=== PATIENT | male | born 1960 | race Caucasian/White ===

== ENCOUNTER 2022-05-16 18:30 | Emergency (ER) | payer BC ==
--- NOTE | 2022-05-16 19:11 | XR ---
EXAMINATION TYPE: XR chest 2V DATE OF EXAM: 05/16/2022 6:55 PM COMPARISON: Chest radiographs from TECHNIQUE: XR chest 2V Frontal and lateral views of the chest. CLINICAL INDICATION:Male, 62 years old with history of sob; FINDINGS: Lungs/Pleura: There is no evidence of pleural effusion, focal consolidation, or pneumothorax. Pulmonary vascularity: Unremarkable. Heart/mediastinum: Cardiomediastinal silhouette is unremarkable. Musculoskeletal: No acute osseous pathology. IMPRESSION: No acute cardiopulmonary disease/process.
[2022-05-16] MEDS ORDERED: dexAMETHasone 2 MG TAB PO STA (20:05)
--- NOTE | 2022-05-16 20:09 | ED ---
General Adult HPI - General Chief complaint: Upper Respiratory Infection Stated complaint: covid+, SOB Time Seen by Provider: 05/16/22 19:55 Source: patient, RN notes reviewed, old records reviewed Mode of arrival: ambulatory Limitations: no limitations - History of Present Illness Initial comments: Patient is a 62-year-old male with past medical history remarkable for acid reflux who presents emergency Department seeking Paxlovid prescription. Patient tested positive for Covid 2 days ago. Has been having more shortness of breath over the last few days with nasal congestion. Feels ill. Denies nausea or vomiting. Denies diarrhea. Endorses decreased appetite and joint pain. Denies fevers. Patient's is also sick with COVID-19. Patient was vaccinated with 2 boosters. Presents for further evaluation at this time. No history of respiratory disease including asthma or COPD. No cardiac disease. No other medications. - Related Data Allergies Allergy/AdvReac Type Severity Reaction Status Date / Time No Known Allergies Allergy Verified 05/16/22 18:48 Review of Systems ROS Statement: Those systems with pertinent positive or pertinent negative responses have been documented in the HPI. Review of Systems: CONST: Denies fever EYES: Denies blurry vision ENT: Endorses nasal congestion C/V: Denies Chest pain RESP: Denies shortness of breath GI: Denies abdominal pain : Denies dysuria SKIN: Denies rash. MSK: Denies joint pain. NEURO: Denies headache ROS Other: All systems not noted in ROS Statement are negative. Past Medical History Past Medical History: No Reported History History of Any Multi-Drug Resistant Organisms: None Reported Past Surgical History: No Surgical Hx Reported Past Psychological History: No Psychological Hx Reported Smoking Status: Never smoker Past Alcohol Use History: None Reported Past Drug Use History: None Reported General Exam - General Exam Comments Initial Comments: General: Appears in no acute distress. HEAD: Normal with no signs of head trauma. EYES: EOMI ENT: Hearing grossly intact, normal oropharynx. RESPIRATORY: Clear breath sounds bilaterally. No wheezes, rales, or rhonchi. No hypoxia, increased work of breathing. C/V: Regular rate and rhythm. S1 and S2 auscultated. ABD: Nondistended EXT: No obvious deformity SKIN: No rashes or lesions observed on exposed skin. NEURO: Alert and oriented 4. Limitations: no limitations Course Vital Signs 05/16/22 05/16/22 18:45 20:16 Temperature 98.3 F 98.9 F Pulse Rate 93 98 Respiratory 20 16 Rate Blood Pressure 156/88 147/89 O2 Sat by Pulse 95 94 L Oximetry Medical Decision Making - Medical Decision Making Based on the patient's presentation and physical exam, I do believe he has acute COVID-19 infection. He has multiple positive tests at home and presents seeking Paxlovid therapy. I evaluated the patient when he was placed in a room. Chest x-ray had already been obtained and was interpreted by myself as revealing no signs of acute cardiopulmonary process, infiltrate. Vital signs within acceptable limits. No respiratory distress. Patient is on no medications that interact with Paxlovid and therefore I do believe it is safe to prescribe in this. We did discuss possible rebound Covid which he expressed understanding of. We discussed quarantine for 5 days as well as quarentine until 24 hours fever free. Patient expressed understanding and was in agreement this plan. He has a pulse ox at home. We discharged home at this time with his prescription. I will provide the patient with a prescription for Paxil did. I instructed the patient to follow up with their PCP in the next 1-3 days . I explained that the patient should return to the emergency department if they experience any worsening symptoms. Strict return precautions were discussed with the patient. The patient expressed understanding of these instructions. I answered all questions that the patient had. The patient was discharged home in good condition with their prescriptions and follow up information. Disposition Clinical Impression: COVID-19 Disposition: HOME SELF-CARE Condition: Good Instructions (If sedation given, give patient instructions): COVID-19 (Coronavirus Disease 2019) (ED) Additional Instructions: Monitor pulse ox. Return if worsening respiratory symptoms. Quarentine until Monday05/20/22. Take Paxlovid as prescribed. Is patient prescribed a controlled substance at d/c from ED?: No Referrals: Jaspal Zapata DO [Primary Care Provider] - 1-2 days Time of Disposition: 20:05
[2022-05-16 20:18] VITALS: BP 147/89; PULSE 98; RESP 16; TEMP 98.9
== END 2022-05-16 20:16 | disposition home or self-care (01) ==
LOC: EC 18:30
DX: U07.1 COVID-19 (principal)
CPT/HCPCS: 71046; 99285; J8540